=== PATIENT | male | born 1970 | race Caucasian/White ===

== ENCOUNTER 2020-09-22 08:54 | Emergency (ER) | payer OTHER, SELFPAY ==
--- NOTE | ~2020-09-22 | XR_ITS ---
EXAMINATION: XR chest 2V 09/22/2020 09:25 INDICATION: Chest pain and shortness of breath PROCEDURE: 2 view chest COMPARISON: No prior studies for comparison. FINDINGS: The lungs are clear. The cardiomediastinal silhouette is within normal limits. There are no pleural effusions. There is no pneumothorax suspected. IMPRESSION: 1: NO ACUTE CARDIOPULMONARY DISEASE. Reviewed, dictated and finalized at location A. [facility]
--- NOTE | 2020-09-22 08:59 | ED.SOB ---
HPI - SOB/Dyspnea General Chief Complaint: Shortness of Breath/Dyspnea Stated Complaint: CHEST PAIN/SOB Time Seen by Provider: 09/22/20 08:56 Source: patient and RN notes reviewed Mode of arrival: ambulatory Limitations: no limitations History of Present Illness HPI Narrative: 49-year-old male presents to the urgent care with complaints of generalized chest tightness, intermittent chest pain, shortness of breath on for approximately 1 to 1-1/2 months. States the chest tightness gets worse with belching and laying flat. Reports the tightness is a 4 or 5 on the pain scale when he is laying flat. When he sitting up in normal day the pain is a 0 or 2. States that he came to the urgent care because last night and this morning when he woke up the pain was worse. Denies that it is pain but intermittent tightness. Has not taken anything for symptoms. Primary care is Dr. Neely, reports calling primary care provider and they will not see him without of negative Covid test. History of high cholesterol. Takes medication. Denies any other past medical history MD elicited complaint: shortness of breath and pain with inspiration Pertinent past history: other (High cholesterol) Onset (ago): week(s) (4 to 6 weeks) Timing: intermittent and progressively worsening (Worse last night and this morning) Exacerbating factors: lying flat, inspiration and deep breaths Relieving factors: nothing Related Data Home Medications Medication Instructions Recorded Confirmed atorvastatin 40 mg PO DAILY 09/22/20 09/22/20 Allergies Allergy/AdvReac Type Severity Reaction Status Date / Time No Known Allergies Allergy Unverified 09/22/20 09:00 Review of Systems Review of Systems: Narrative: CONSTITUTIONAL: Denies fever, chills, or sweats. EYES: Denies visual changes, redness, or discharge. ENT: Denies rhinorrhea, congestion, sore throat, or otalgia. CARDIOVASCULAR: Denies chest pain, palpitations, or No edema. Endorses sided intermittent chest tightness. Does not radiate RESPIRATORY: Denies cough. + SOB. GASTROINTESTINAL: Denies abdominal pain, nausea, vomiting, or diarrhea. GENITOURINARY: Denies dysuria or hematuria. SKIN: Denies rash or itching. MUSCULOSKELETAL: Denies back pain, joint pain, or myalgia. NEUROLOGIC: Denies headache, numbness, or weakness. PSYCHIATRIC: Denies anxiety or depression. All other systems reviewed are negative, except as documented in HPI. PMFSH Comments At the time of my signature, I reviewed and agree with the nursing past medical, surgical, social, and family history. There is no relevant family history pertinent to the patient complaint. Exam Narrative: Exam Narrative: GENERAL: This is a well-nourished, well-developed patient, in no apparent distress. HEAD: normocephalic, atraumatic. EYES: PERRL. Sclera clear/white. Vision is grossly intact. EARS: External ears normal. Hearing grossly intact. NECK: Neck supple, non-tender without lymphadenopathy, masses or thyromegaly. CARDIOVASCULAR: Regular rate and rhythm without murmurs, gallops, or rubs. RESPIRATORY: Clear to auscultation. Breath sounds equal bilaterally. No wheezes, rales, or rhonchi. Unable to reproduce the pain with palpation of the chest. GASTROINTESTINAL: Abdomen soft, non-tender, nondistended. SKIN: warm, intact with no suspicious lesions or rash, good texture and turgor. NEURO: awake, alert, and oriented to person, place and time. There were no obvious focal neurologic abnormalities. EXTREMITIES: No clubbing, cyanosis, or edema. BACK: Nontender without deformity or crepitance. No flank tenderness. Course Course Emergency Course: Long discussion with patient in regards to signs/symptoms. Discussed options of going to the emergency room for cardiac rule out. Patient states he rather follow-up with his primary care doctor. States he will reach out to him. Discussed signs and symptoms to report immediately to the emergency room and to call 911. patient added
[2020-09-22 09:00] VITALS: BP 133/92; PULSE 76; RESP 16; TEMP 36.4; O2SAT 100
[2020-09-22 10:11] VITALS: BP 112/82
--- NOTE | 2020-09-22 12:31 | ECG_ITS ---
Measurements Intervals Mongo Rate: 65 P: 55 VT: 162 QRS: 14 QRSD: 107 T: 40 QT: 387 QTc: 405 Interpretive Statements SINUS RHYTHM VENTRICULAR PREMATURE COMPLEX BASELINE ARTIFACT- I, III, AVL BORDERLINE ECG Electronically Signed On 09-22-2020 12:44:14 [employer] by Ryan Dixon D.O.
== END 2020-09-22 10:11 | disposition home or self-care (01) ==
PROVIDERS: Emergency Provider Nurse Practitioner; PCP Internal Medicine
DX: R09.1 Pleurisy (principal); F41.9 Anxiety disorder, unspecified; E78.00 Pure hypercholesterolemia, unspecified
CPT/HCPCS: 71046; 93005; 99203; G0463